=== PATIENT | female | born 1935 | race Caucasian/White ===

== ENCOUNTER 2017-11-21 13:35 | Inpatient (IN) | payer OTHER ==
[~2017-11-21] VITALS: Ht 152.4 cm; Wt 111.1 kg
[2017-11-21] VITALS (9 sets, daily range): BP systolic 90–122; BP diastolic 36–85
[2017-11-21 14:33] LABS: Hematocrit 18.1 % (36.0-46.0); Mean Corpuscular Hemoglobin 18.2 pg (28.0-32.0); Mean Corpuscular Hgb Conc. 28.8 g/dL (32.0-36.0); Mean Corpuscular Volume 63.3 fL (80.0-100.0); Platelet Count (auto) 280 10^3/uL (140-450); Red Blood Cells 2.87 10^6/uL (4.0-5.20); White Blood Cell 7.4 10^3/uL (4.4-10.8)
[2017-11-21 14:37] LABS: Red Cell Distribution Width 23.3 % (11.8-14.3)
[2017-11-21 14:38] LABS: Hemoglobin 5.2 g/dL (12.2-16.2)
[2017-11-21 14:39] LABS: Band Neutrophils % (manual) 0; Basophils % (manual) 0 (0.0-2.0); Blast Cells 0; Eosinophils % (manual) 0 (0-7); Metamyelocytes % 0; Myelocytes % 0; Promyelocytes % 0; Reactive Lymphocytes 0
[2017-11-21 14:55] LABS: Albumin 3.3 g/dL (3.4-5.0); Bilirubin, Total 0.6 mg/dL (0.2-1.0); Calcium 8.4 mg/dL (8.5-10.1); Potassium 3.9 mmol/L (3.5-5.1); Total Protein 6.5 g/dL (6.4-8.2)
[2017-11-21 15:23] LABS: Lymphocytes % (manual) 13 (10.0-50.0); Monocytes % (manual) 4 (0-12)
[2017-11-21] MEDS ORDERED: APIX5TAB OR (16:16)
[2017-11-21] MEDS ORDERED: MELO1TAB56 PO (16:16)
[2017-11-21] MEDS ORDERED: TRAZ-181 PO (16:16)
[2017-11-21] MEDS ORDERED: SIMV-8 PO (16:16)
[2017-11-21] MEDS ORDERED: AML5T PO (16:16)
[2017-11-21] MEDS ORDERED: CETI10TA80 PO (16:16)
[2017-11-21] MEDS ORDERED: ESCI10TA53 PO (16:16)
[2017-11-21] MEDS ORDERED: FURO20TA3 PO (16:16)
[2017-11-21] MEDS ORDERED: METF-370 PO (16:16)
[2017-11-21] MEDS ORDERED: VALS40TA2 PO (16:16)
[2017-11-21] MEDS ORDERED: DEXTROSE (50%) 50ML SYRG IV PRN (16:30)
[2017-11-21] MEDS ORDERED: MORPHINE SULF INJ 2 MG/ML SYRINGE 1ML IV PRN ×2 (16:45)
[2017-11-21] MEDS ORDERED: ACETAMINOPHEN 325 MG TAB PO PRN (16:45)
[2017-11-21] MEDS ORDERED: NITROGLYCERIN 0.4 MG SL TAB SL PRN ×2 (16:45)
[2017-11-21] MEDS ORDERED: LORazepam 0.5 MG TAB PO PRN (16:45)
[2017-11-21] MEDS ORDERED: ONDANSETRON HCL 4 MG/2 ML VIAL IV PRN (16:45)
[2017-11-21] MEDS ORDERED: ALUM & MAG HYDROX-SIMETH LIQ(MAALOX) 30 ML PO ONE (16:45)
[2017-11-21] MEDS ORDERED: ZOLPIDEM TARTRATE 5 MG TAB PO PRN (16:45)
[2017-11-21 17:00] LABS: INR 1.07 (0.9-1.15); Prothrombin Time 11.4 sec (9.27-12.13)
[2017-11-21 17:33] LABS: % Iron Saturation 1.5 % (15-50)
[2017-11-21] MEDS: ACCU-CHEK COMFORT CURVE STRIP VI SCH ×2 (18:17→22:18)
[2017-11-21] MEDS: DOCUSATE SOD 100 MG CAP PO SCH (18:29)
[2017-11-21] MEDS: FUROSEMIDE 20 MG/2 ML VIAL IV SCH (18:30)
[2017-11-21] MEDS: InsuLIN REG 1unit/0.01ml Soln (100units/ml) SC SCH ×2 (18:30→22:23)
[2017-11-21] MEDS: Glucerna Carbsteady SHAKE Vanilla 8oz PO SCH (19:32)
[2017-11-21 20:11] LABS: Urine Bacteria MANY /hpf (None Seen); Urine Blood Negative /uL (Negative); Urine Mucus FEW (None Seen); Urine Specific Gravity 1.014 (1.001-1.035); Urine WBC 10 /hpf (0 - 5)
[2017-11-21] MEDS ORDERED: ATORVASTATIN 20 MG TAB PO SCH (22:00)
[2017-11-21] MEDS ORDERED: traZODone HCL 50 MG TAB PO SCH (22:00)
[2017-11-21] MEDS: SODIUM CHLOR 0.9% PF (SALINE LOCK) 10ML VIAL/SYR IV SCH (22:07)
[2017-11-21] MEDS: CARVEDILOL 3.125 MG TAB PO SCH (22:18)
[2017-11-21] MEDS: POTASSIUM CHLORIDE 8 MEQ TAB PO SCH (22:18)
[2017-11-22 00:46] LABS: Hematocrit 22.2 % (36.0-46.0)
[2017-11-22 00:49] LABS: Hemoglobin 6.7 g/dL (12.2-16.2)
[2017-11-22 01:48] VITALS: BP 121/74
[2017-11-22 02:05] VITALS: BP 121/73
[2017-11-22 03:34] VITALS: BP 116/70
[2017-11-22 05:37] LABS: Basophils # (auto) 0 uL; Eosinophils # (auto) 0 uL; Hemoglobin 8.1 g/dL (12.2-16.2); White Blood Cell 9.3 10^3/uL (4.4-10.8)
[2017-11-22 05:40] LABS: Basophils % (auto) 0.2 % (0.0-2.0); Eosinophils % (auto) 0.1 % (0.0-7.0); Hematocrit 26.1 % (36.0-46.0); Lymphocytes # (auto) 1.6 uL; Lymphocytes % (auto) 16.8 % (10.0-50.0); Mean Corpuscular Hemoglobin 22.2 pg (28.0-32.0); Mean Corpuscular Hgb Conc. 30.9 g/dL (32.0-36.0); Monocytes # (auto) 0.6 uL; Monocytes % (auto) 6.8 % (0.0-12.0); Neutrophils # (auto) 7.1 uL; Neutrophils % (auto) 76.1 % (37.0-80.0); Nucleated Red Blood Cells % 0.5 %; Platelet Count (auto) 231 10^3/uL (140-450); Red Blood Cells 3.62 10^6/uL (4.0-5.20)
[2017-11-22 05:48] LABS: Red Cell Distribution Width 30.1 % (11.8-14.3)
[2017-11-22] MEDS: SODIUM CHLOR 0.9% PF (SALINE LOCK) 10ML VIAL/SYR IV SCH ×2 (05:50→13:44)
[2017-11-22] MEDS: FUROSEMIDE 20 MG/2 ML VIAL IV SCH (06:02)
[2017-11-22 06:03] LABS: Albumin 3.2 g/dL (3.4-5.0); BUN/Creatinine Ratio 34.7; Bilirubin, Total 0.9 mg/dL (0.2-1.0); Calcium 8.1 mg/dL (8.5-10.1); Magnesium 2.7 mg/dL (1.6-2.6); Potassium 4.2 mmol/L (3.5-5.1); Total Protein 6.4 g/dL (6.4-8.2)
[2017-11-22] MEDS: ACCU-CHEK COMFORT CURVE STRIP VI SCH ×2 (06:31→11:22)
[2017-11-22] MEDS: InsuLIN REG 1unit/0.01ml Soln (100units/ml) SC SCH ×2 (06:39→11:31)
[2017-11-22] MEDS: Glucerna Carbsteady SHAKE Vanilla 8oz PO SCH ×2 (08:10→12:11)
[2017-11-22] MEDS: DOCUSATE SOD 100 MG CAP PO SCH (09:43)
[2017-11-22] MEDS: POTASSIUM CHLORIDE 8 MEQ TAB PO SCH (09:43)
[2017-11-22] MEDS: CARVEDILOL 3.125 MG TAB PO SCH (09:43)
[2017-11-22] MEDS ORDERED: OPTISON 3ml Vial for INJ IV ONE ×2 (09:45→10:30)
[2017-11-22] MEDS ORDERED: MELOXICAM 15MG PO SCH (10:00)
[2017-11-22] MEDS ORDERED: amLODIPine BESYLATE 5 MG TAB PO SCH (10:00)
[2017-11-22] MEDS ORDERED: VALSARTAN 80 MG TAB PO SCH (10:00)
[2017-11-22] MEDS ORDERED: PANTOPRAZOLE 40 MG/10 ML VIAL IV ONE (13:00)
[2017-11-22 15:53] VITALS: BP 117/58
[2017-11-22] MEDS ORDERED: PANTOPRAZOLE 40 MG/10 ML VIAL IV SCH (22:00)
== END 2017-11-22 16:18 | disposition short-term general hospital (02) | DRG 559 ==
LOC: ER 13:35 → OVERFLOW 13:36
PROVIDERS: ADMIT Internal Medicine; ATTEND Internal Medicine Geriatric Medicine
PROC: 30233L1 Transfusion of Nonautologous Fresh Plasma into Peripheral Vein, Percutaneous Approach (ICD-10-PCS; principal; 2017-11-21)
PROC: 30233N1 Transfusion of Nonautologous Red Blood Cells into Peripheral Vein, Percutaneous Approach (ICD-10-PCS; 2017-11-21)
PROC: 30233K1 Transfusion of Nonautologous Frozen Plasma into Peripheral Vein, Percutaneous Approach (ICD-10-PCS; 2017-11-21)
DX: T84.028A Dislocation of other internal joint prosthesis, initial encounter (principal); I50.43 Acute on chronic combined systolic (congestive) and diastolic (congestive) heart failure; I13.0 Hypertensive heart and chronic kidney disease with heart failure and stage 1 through stage 4 chronic kidney disease, or unspecified chronic kidney disease; D68.69 Other thrombophilia; E44.0 Moderate protein-calorie malnutrition; Z68.42 Body mass index [BMI] 45.0-49.9, adult; I48.92 Unspecified atrial flutter; K92.2 Gastrointestinal hemorrhage, unspecified; I48.1 Persistent atrial fibrillation; D64.9 Anemia, unspecified; E11.21 Type 2 diabetes mellitus with diabetic nephropathy; E11.22 Type 2 diabetes mellitus with diabetic chronic kidney disease; E61.1 Iron deficiency; E78.5 Hyperlipidemia, unspecified; Z96.611 Presence of right artificial shoulder joint; F41.9 Anxiety disorder, unspecified; Y79.2 Prosthetic and other implants, materials and accessory orthopedic devices associated with adverse incidents; I08.0 Rheumatic disorders of both mitral and aortic valves; I25.10 Atherosclerotic heart disease of native coronary artery without angina pectoris; I70.0 Atherosclerosis of aorta; N18.3 Chronic kidney disease, stage 3 (moderate); Z95.0 Presence of cardiac pacemaker; Z95.1 Presence of aortocoronary bypass graft; I25.2 Old myocardial infarction; Z79.84 Long term (current) use of oral hypoglycemic drugs; Z79.899 Other long term (current) drug therapy; Z80.9 Family history of malignant neoplasm, unspecified
CPT/HCPCS: 36415; 36430; 71045; 80053; 80061; 81001; 82962; 83036; 83540; 83550; 83735; 83880; 84436; 84443; 84484; 85007; 85014; 85018; 85025; 85027; 85384; 85610; 86850; 86900; 86901; 86920; 87086; 87088; 87186; 93005; 93306; 96374; 96375; C9113; G0378; J1815; Q9956